=== PATIENT | female | born 1980 | race Two or more races ===

== ENCOUNTER 2017-07-07 06:55 | Inpatient (IN) | payer BC ==
[~2017-07-07] VITALS: Ht 160 cm; Wt 64.7 kg
[2017-07-07] MEDS ORDERED: KETOROLAC 30 MG/1 ML ONE (07:58)
[2017-07-07] MEDS ORDERED: KETOROLAC 30 MG/1 ML IVPush ONE (08:00)
[2017-07-07] MEDS ORDERED: SODIUM CHLORIDE FLUSH 10ML SYR IVF ONE (08:00)
[2017-07-07] MEDS ORDERED: ONDANSETRON 2MG/ML, 2ML IVPush ONE (08:00)
[2017-07-07] MEDS ORDERED: SODIUM CHLORIDE 0.9% 1,000ML IVBOLUS ONE (08:00)
[2017-07-07] MEDS ORDERED: PLEASE ENTER ALLERGIES MC SCH (08:00)
[2017-07-07 08:22] LABS: MEAN CORPUSCULAR HEMOGLOBIN 32.6 pg (27.0-34.8); MEAN CORPUSCULAR HGB CONC 33.4 g/dL (32.4-35.8); MEAN CORPUSCULAR VOLUME 97.7 fL (80-100); PLATELET COUNT 288 x10^3/uL (130-400); RED BLOOD COUNT 4.33 x10^6/uL (3.82-5.3); RED CELL DISTRIBUTION WIDTH 14.9 % (9.6-15.2)
[2017-07-07 08:36] LABS: ANION GAP 11 mmol/L (5-15); CALCIUM 8.6 mg/dL (8.5-10.1); CHLORIDE 108 mmol/L (98-107); CREATININE 0.66 mg/dL (0.55-1.02)
[2017-07-07] MEDS ORDERED: CEFTRIAXONE PMX 1GM/50ML 50 ML IV ONE (09:00)
[2017-07-07] MEDS ORDERED: METRONIDAZOLE PMX 500MG/100ML 100 ML IV ONE (09:00)
[2017-07-07 09:12] LABS: MD YES
[2017-07-07 09:18] LABS: MONOS#(MANUAL) 1.08 x10^3/uL (0.3-2.7); MONOS% (MANUAL) 5 % (2-9)
[2017-07-07 09:19] LABS: <PLATELET ESTIMATE> ADEQUATE; <PLT MORPHOLOGY> NORMAL PLT MORPH; BAND#(MANUAL) 1.08 x10^3/uL; BANDS%(MANUAL) 5 % (0-7); LYMPH#(MANUAL) 1.29 x10^3/uL (1-3.4); LYMPHS% (MANUAL) 6 % (22-44); POLYCHROMASIA 1+; SEG#(MANUAL) 18.06 x10^3/uL (1.8-6.8); SEGS% (MANUAL) 84 % (42-75)
[2017-07-07 09:26] LABS: MICROSCOPIC NOT IND
[2017-07-07 09:36] LABS: CULTURE INDICATED? NO
[2017-07-07] MEDS ORDERED: CEFTRIAXONE PMX 1GM/50ML 50 ML ONE (09:48)
[2017-07-07] MEDS ORDERED: METRONIDAZOLE PMX 500MG/100ML 100 ML ONE (09:48)
[2017-07-07] MEDS ORDERED: LABETALOL 5MG/ML, 20ML IVPush PRN (11:00)
[2017-07-07] MEDS ORDERED: METRONIDAZOLE PMX 500MG/100ML 100 ML IV SCH (11:00)
[2017-07-07] MEDS ORDERED: POTASSIUM CHLORIDE 20 MEQ TAB.ER.PRT PO ONE ×2 (11:00→14:00)
[2017-07-07] MEDS ORDERED: ONDANSETRON ODT 4 MG PO PRN (11:00)
[2017-07-07] MEDS ORDERED: CEFTRIAXONE PMX 1GM/50ML 50 ML IV SCH (11:00)
[2017-07-07] MEDS: ENOXAPARIN 40 MG/0.4 ML SQ SCH (11:00)
[2017-07-07] MEDS ORDERED: HYDROcodone/APAP 5/325 TABLET PO PRN (11:00)
[2017-07-07] MEDS ORDERED: POLYETHYLENE GLYCOL 17 GM PACKET PO PRN ×2 (11:00→19:00)
[2017-07-07 11:34] VITALS: BP 131/85
[2017-07-07] MEDS: PIPERACILLIN/TAZO/PMX 3.375GM 50 ML IV SCH ×2 (12:49→18:20)
[2017-07-07] MEDS: SODIUM CHLORIDE 0.9% 1,000 ML IV SCH ×2 (12:49→21:42)
[2017-07-07] MEDS ORDERED: IBUPROFEN 200 MG TABLET PO PRN (14:00)
[2017-07-07] MEDS ORDERED: ACETAMINOPHEN 325 MG TABLET PO PRN (14:00)
[2017-07-07 14:30] VITALS: BP 112/73
[2017-07-07 17:00] VITALS: BP 120/82
[2017-07-07 19:21] LABS: MEAN CORPUSCULAR HEMOGLOBIN 32.9 pg (27.0-34.8); MEAN CORPUSCULAR HGB CONC 33.5 g/dL (32.4-35.8); MEAN CORPUSCULAR VOLUME 98.1 fL (80-100); MEAN PLATELET VOLUME 6.8 fL (7.4-10.4); PLATELET COUNT 318 x10^3/uL (130-400); RED BLOOD COUNT 3.88 x10^6/uL (3.82-5.3); RED CELL DISTRIBUTION WIDTH 15.2 % (9.6-15.2)
[2017-07-07 19:30] LABS: ANION GAP 8 mmol/L (5-15); CALCIUM 8.1 mg/dL (8.5-10.1); CHLORIDE 114 mmol/L (98-107); CREATININE 0.68 mg/dL (0.55-1.02)
[2017-07-07 19:45] LABS: MD YES
[2017-07-07 19:47] LABS: <PLATELET ESTIMATE> ADEQUATE; <PLT MORPHOLOGY> NORMAL PLT MORPH; <RBC MORPHOLOGY> NORMAL; BAND#(MANUAL) 2.49 x10^3/uL; BANDS%(MANUAL) 11 % (0-7); EOS#(MANUAL) 0.23 x10^3/uL (0.0-0.4); EOS% (MANUAL) 1 % (1-7); LYMPH#(MANUAL) 2.71 x10^3/uL (1-3.4); LYMPHS% (MANUAL) 12 % (22-44); SEG#(MANUAL) 17.18 x10^3/uL (1.8-6.8); SEGS% (MANUAL) 76 % (42-75)
[2017-07-07 20:12] VITALS: BP 125/88
[2017-07-07] MEDS ORDERED: OMNIPAQUE 350 MG/ML, 100ML BOTTLE ONE (21:05)
[2017-07-07] MEDS ORDERED: OXYcodone IR 5MG TABLET PO PRN (22:30)
[2017-07-08] MEDS: PIPERACILLIN/TAZO/PMX 3.375GM 50 ML IV SCH ×4 (00:10→18:33)
[2017-07-08 01:46] VITALS: BP 122/79
[2017-07-08 05:01] LABS: BASOPHILS # (AUTO) 0.05 x10^3/uL (0-0.1); BASOPHILS % (AUTO) 0 % (0-1); EOSINOPHILS # (AUTO) 0.05 x10^3/uL (0-0.4); EOSINOPHILS % (AUTO) 0 % (1-7); LYMPHOCYTES # (AUTO) 1.33 x10^3/uL (1-3.4); LYMPHOCYTES % (AUTO) 8 % (22-44); MD NO; MEAN CORPUSCULAR HEMOGLOBIN 33.5 pg (27.0-34.8); MEAN CORPUSCULAR HGB CONC 33.8 g/dL (32.4-35.8); MEAN CORPUSCULAR VOLUME 99.3 fL (80-100); MEAN PLATELET VOLUME 6.7 fL (7.4-10.4); MONOCYTES # (AUTO) 0.71 x10^3/uL (0.2-0.8); MONOCYTES % (AUTO) 4 % (2-9); NEUTROPHILS # (AUTO) 15.57 x10^3/uL (1.8-6.8); NEUTROPHILS % (AUTO) 88 % (42-75); PLATELET COUNT 256 x10^3/uL (130-400); RED BLOOD COUNT 3.75 x10^6/uL (3.82-5.3); RED CELL DISTRIBUTION WIDTH 15.1 % (9.6-15.2)
[2017-07-08 05:06] LABS: ALBUMIN 2.3 g/dL (3.4-5.0); ANION GAP 9 mmol/L (5-15); CALCIUM 7.5 mg/dL (8.5-10.1); CHLORIDE 113 mmol/L (98-107)
[2017-07-08] MEDS: SODIUM CHLORIDE 0.9% 1,000 ML IV SCH ×2 (05:08→12:16)
[2017-07-08 05:09] LABS: D-DIMER 0.89 ug/mlFEU (0.00-0.52); INTERNATIONAL NORMALIZED RATIO 1.23 (0.93-1.1); PROTHROMBIN TIME 12.7 Seconds (9.6-11.5)
[2017-07-08 05:22] LABS: ALANINE AMINOTRANSFERASE 28 U/L (12-78); ALKALINE PHOSPHATASE 83 U/L (45-117); BILIRUBIN,TOTAL 0.7 mg/dL (0.2-1.0); CREATININE 0.55 mg/dL (0.55-1.02); FREE T4 (FREE THYROXINE) 1.36 ng/dL (0.76-1.46); THYROID STIMULATING HORMONE 0.774 mIU/L (0.358-3.740); TOTAL PROTEIN 5.8 g/dL (6.4-8.2)
[2017-07-08 05:23] LABS: FOLATE LEVEL > 20.0 ng/mL (3.1-17.5)
[2017-07-08 07:07] VITALS: BP 113/75
[2017-07-08] MEDS ORDERED: CYANOCOBALAMIN 1,000 MCG/ML, 1ML IM ONE (09:30)
[2017-07-08] MEDS: SENNA/DOCUSATE TABLET PO SCH (09:31)
[2017-07-08] MEDS: ENOXAPARIN 40 MG/0.4 ML SQ SCH (11:00)
[2017-07-08 13:46] VITALS: BP 129/86
[2017-07-08 15:50] LABS: MEAN CORPUSCULAR HEMOGLOBIN 33.2 pg (27.0-34.8); MEAN CORPUSCULAR HGB CONC 33.6 g/dL (32.4-35.8); MEAN CORPUSCULAR VOLUME 98.7 fL (80-100); MEAN PLATELET VOLUME 6.8 fL (7.4-10.4); PLATELET COUNT 292 x10^3/uL (130-400); RED BLOOD COUNT 3.92 x10^6/uL (3.82-5.3); RED CELL DISTRIBUTION WIDTH 15.6 % (9.6-15.2)
[2017-07-08 15:57] LABS: ANION GAP 9 mmol/L (5-15); CALCIUM 8.4 mg/dL (8.5-10.1); CHLORIDE 113 mmol/L (98-107); CREATININE 0.61 mg/dL (0.55-1.02)
[2017-07-08 16:06] LABS: BASOPHILS # (AUTO) 0.04 x10^3/uL (0-0.1); BASOPHILS % (AUTO) 0 % (0-1); EOSINOPHILS # (AUTO) 0.11 x10^3/uL (0-0.4); EOSINOPHILS % (AUTO) 1 % (1-7); LYMPHOCYTES # (AUTO) 1.57 x10^3/uL (1-3.4); LYMPHOCYTES % (AUTO) 12 % (22-44); MD SCAN; MONOCYTES # (AUTO) 0.69 x10^3/uL (0.2-0.8); MONOCYTES % (AUTO) 5 % (2-9); NEUTROPHILS # (AUTO) 10.73 x10^3/uL (1.8-6.8); NEUTROPHILS % (AUTO) 82 % (42-75)
[2017-07-08 18:40] VITALS: BP 130/92
[2017-07-09] MEDS: PIPERACILLIN/TAZO/PMX 3.375GM 50 ML IV SCH (00:17)
[2017-07-09 05:02] LABS: BASOPHILS # (AUTO) 0.03 x10^3/uL (0-0.1); BASOPHILS % (AUTO) 0 % (0-1); EOSINOPHILS # (AUTO) 0.22 x10^3/uL (0-0.4); EOSINOPHILS % (AUTO) 3 % (1-7); LYMPHOCYTES # (AUTO) 1.91 x10^3/uL (1-3.4); LYMPHOCYTES % (AUTO) 21 % (22-44); MD NO; MEAN CORPUSCULAR HGB CONC 33.5 g/dL (32.4-35.8); MEAN CORPUSCULAR VOLUME 98.6 fL (80-100); MONOCYTES # (AUTO) 0.61 x10^3/uL (0.2-0.8); MONOCYTES % (AUTO) 7 % (2-9); NEUTROPHILS # (AUTO) 6.28 x10^3/uL (1.8-6.8); NEUTROPHILS % (AUTO) 69 % (42-75); PLATELET COUNT 279 x10^3/uL (130-400); RED BLOOD COUNT 3.84 x10^6/uL (3.82-5.3); RED CELL DISTRIBUTION WIDTH 15.3 % (9.6-15.2)
[2017-07-09 05:04] LABS: ALBUMIN 2.4 g/dL (3.4-5.0); ANION GAP 8 mmol/L (5-15); CALCIUM 8.1 mg/dL (8.5-10.1); CHLORIDE 114 mmol/L (98-107); CREATININE 0.64 mg/dL (0.55-1.02)
[2017-07-09 05:07] VITALS: BP 104/71
[2017-07-09] MEDS ORDERED: CEFTRIAXONE 1,000 MG in SODIUM CHLORIDE 0.9% 50 ML IV ONE (06:00)
[2017-07-09 07:08] VITALS: BP 122/84
[2017-07-09] MEDS ORDERED: AMOX1TAB64 PO (07:11)
[2017-07-09] MEDS ORDERED: METR500T PO (07:11)
[2017-07-09] MEDS ORDERED: CYAN500L2 PO (07:16)
[2017-07-09] MEDS: SENNA/DOCUSATE TABLET PO SCH (08:18)
[2017-07-09] MEDS ORDERED: metroNIDAZOLE 500 MG TABLET PO SCH (09:00)
[2017-07-09] MEDS ORDERED: SODIUM CHLORIDE 0.9% 1,000 ML IV SCH (10:41)
[2017-07-10] MEDS ORDERED: CEFTRIAXONE PMX 1GM/50ML 50 ML IV SCH (06:30)
== END 2017-07-09 09:41 | disposition home or self-care (01) | DRG 776 ==
LOC: ED 07:45 → EDIP 10:41 → 4WST 11:21
PROVIDERS: ADMIT Hospitalist; ATTEND Hospitalist
PROC: 0T9B70Z Drainage of Bladder with Drainage Device, Via Natural or Artificial Opening (ICD-10-PCS; principal; 2017-07-07)
DX: O85 Puerperal sepsis (principal); E44.1 Mild protein-calorie malnutrition; O99.63 Diseases of the digestive system complicating the puerperium; O90.89 Other complications of the puerperium, not elsewhere classified; O25.3 Malnutrition in the puerperium; E87.6 Hypokalemia; K21.9 Gastro-esophageal reflux disease without esophagitis; Z68.25 Body mass index [BMI] 25.0-25.9, adult; R73.9 Hyperglycemia, unspecified; Z82.49 Family history of ischemic heart disease and other diseases of the circulatory system
CPT/HCPCS: 36415; 71045; 74177; 76830; 80048; 80053; 81003; 82040; 82607; 82746; 83605; 83735; 84100; 84145; 84425; 84439; 84443; 84702; 85025; 85379; 85610; 85730; 87040; 93005; 93970; J0696; J1885; J2543; Q9967; J3420; J7030